=== PATIENT | female | born 1995 | race Caucasian/White ===

== ENCOUNTER 2018-01-02 17:16 | Emergency (ER) | payer OTHER ==
[2018-01-02 17:33] VITALS: BP 159/110
--- NOTE | 2018-01-02 17:53 | UC ---
Laceration HPI - HPI Summary HPI Summary: left 2 and 3 finger cut at work just [employer] - History Of Current Complaint Chief Complaint: UCLaceration Stated Complaint: FINGERS LACERATIONS Time Seen by Provider: 01/02/18 17:42 Hx Obtained From: Patient Laceration Location: Finger - left 2 and 3 finger tip Mechanism Of Injury: Sharp Trauma Onset/Duration: Sudden Onset Pain Intensity: 7 Pain Scale Used: 0-10 Numeric Aggravating Factors: Nothing Related History: Occupational Injury, Dominant Hand Right - Allergies/Home Medications Allergies/Adverse Reactions: Allergies Allergy/AdvReac Type Severity Reaction Status Date / Time aspirin Allergy Vomiting Verified 01/02/18 17:34 naproxen Allergy Vomiting Verified 01/02/18 17:34 Home Medications: Home Medications Verapamil TAB* [Calan TAB*] 80 mg PO BID 01/02/18 [History Confirmed 01/02/18] PMH/Surg Hx/FS Hx/Imm Hx Previously Healthy: No Cardiovascular History: Hypertension - Surgical History Surgical History: Yes Surgery Procedure, Year, and Place: MUSCLE BIOPSY LEFT THIGH - Family History Known Family History: Positive: None - Social History Occupation: Unemployed Lives: With Family Alcohol Use: Weekly Substance Use Type: None Smoking Status (MU): Never Smoked Tobacco Review of Systems Constitutional: Negative Skin: Other - small skin avulsion left 3rd finger 2 small superficial lac left 2nd finger Eyes: Negative ENT: Negative Respiratory: Negative Cardiovascular: Negative Gastrointestinal: Negative Genitourinary: Negative Motor: Negative Neurovascular: Negative Musculoskeletal: Negative Neurological: Negative Psychological: Negative Is Patient Immunocompromised?: No All Other Systems Reviewed And Are Negative: Yes Physical Exam Triage Information Reviewed: Yes Appearance: Well-Appearing, No Pain Distress, Well-Nourished Vital Signs: Initial Vital Signs Temp 99.0 F 01/02/18 17:22 Pulse 130 01/02/18 17:22 Resp 18 01/02/18 17:22 BP 159/110 01/02/18 17:22 Pulse Ox 99 01/02/18 17:22 Vital Signs Reviewed: Yes Eye Exam: Normal Eyes: Positive: Conjunctiva Clear ENT Exam: Normal ENT: Positive: Normal ENT inspection, Hearing grossly normal. Negative: Trismus , Muffled voice, Hoarse voice Dental Exam: Normal Neck exam: Normal Neck: Positive: Supple, Nontender Respiratory Exam: Normal Respiratory: Positive: Chest non-tender, No respiratory distress, No accessory muscle use Cardiovascular Exam: Normal Cardiovascular: Positive: RRR, Pulses Normal, Brisk Capillary Refill Musculoskeletal Exam: Normal Musculoskeletal: Positive: Strength Intact, ROM Intact, No Edema Neurological Exam: Normal Neurological: Positive: Alert, Muscle Tone Normal Psychological Exam: Normal Psychological: Positive: Normal Response To Family, Age Appropriate Behavior Skin: Positive: Other - Skin avulsion left 3rd tip and 2 small lacs tip of 2nd finger Laceration Course/Dx - Course/Dx Course Of Treatment: vaseline gauze dressing wash wound follow with pcp rpn - Differential Dx - Laceration/Wound Provider Diagnoses: skin avulsion and laceration 2/3 finger left hand Discharge - Sign-Out/Discharge Documenting (check all that apply): Patient Departure - Discharge Plan Condition: Stable Disposition: HOME Prescriptions: Cephalexin CAP* [Keflex CAP*] 500 mg PO QID #20 cap Patient Education Materials: Acute Wound Care (ED), Skin Avulsion (ED), Hypertension (ED) Referrals: [facility] [Outside] - 1 Week - Billing Disposition and Condition Condition: STABLE Disposition: Home
== END 2018-01-02 18:16 | disposition home or self-care (01) ==
LOC: UCEAST 17:16
DX: S61.211A Laceration without foreign body of left index finger without damage to nail, initial encounter (principal); S61.213A Laceration without foreign body of left middle finger without damage to nail, initial encounter; W26.9XXA Contact with unspecified sharp object(s), initial encounter; Y93.9 Activity, unspecified; Y92.9 Unspecified place or not applicable; Y99.0 Civilian activity done for income or pay; I10 Essential (primary) hypertension; Z88.6 Allergy status to analgesic agent
CPT/HCPCS: 99212; G0463

== ENCOUNTER 2019-04-07 11:26 | Emergency (ER) | payer BC ==
[2019-04-07 11:48] VITALS: BP 132/86
--- NOTE | 2019-04-07 17:24 | UC ---
Upper Extremity HPI - HPI Summary HPI Summary: 23 year old female with no PMH, no meds presents with laceration to left index finger 20 minutes while cutting film at work with a razor. + washed out, no recent abx use, able to move, + pain, + bleeding. last tetanus 2015. - History of Current Complaint Chief Complaint: UCLaceration Stated Complaint: FINGER LAC Time Seen by Provider: 04/07/19 12:11 Hx Obtained From: Patient Hx Last Menstrual Period: 2 wks ago ?: No Onset/Duration: Sudden Onset Severity Initially: Moderate Severity Currently: Mild Pain Intensity: 1 Pain Scale Used: 0-10 Numeric Character: Sharp Associated Signs And Symptoms: Positive: Negative - Allergies/Home Medications Allergies/Adverse Reactions: Allergies Allergy/AdvReac Type Severity Reaction Status Date / Time aspirin Allergy Vomiting Verified 04/07/19 11:49 naproxen Allergy Vomiting Verified 04/07/19 11:49 PMH/Surg Hx/FS Hx/Imm Hx Previously Healthy: Yes - MSK disease, nae's dx - Surgical History Surgical History: Yes Surgery Procedure, Year, and Place: MUSCLE BIOPSY LEFT THIGH - Family History Known Family History: Positive: None, Non-Contributory - Social History Occupation: Employed Full-time Alcohol Use: Occasionally Substance Use Type: None Smoking Status (MU): Never Smoked Tobacco - Immunization History Most Recent Tetanus Shot: 2014 Review of Systems All Other Systems Reviewed And Are Negative: Yes Constitutional: Positive: Negative Musculoskeletal: Positive: Arthralgia, Myalgia. Negative: Decreased ROM, Edema Neurological: Positive: Negative Is Patient Immunocompromised?: No Physical Exam Triage Information Reviewed: Yes Appearance: Well-Appearing, No Pain Distress, Well-Nourished Vital Signs: Initial Vital Signs Temp 99.0 F 04/07/19 11:46 Pulse 98 04/07/19 11:46 Resp 12 04/07/19 11:46 BP 132/86 04/07/19 11:46 Pulse Ox 100 04/07/19 11:46 Vital Signs Reviewed: Yes Eyes: Positive: Conjunctiva Clear ENT: Positive: Hearing grossly normal Musculoskeletal: Positive: Strength Intact, ROM Intact, No Edema - left hand, fingers throughout Neurological: Positive: Alert, Other: - SITLT l hand throughout Psychological: Positive: Normal Response To Family Skin: Positive: Other - small laceration involving the lateral edge of the L 2nd finger, bleeding controlled with pressure, partial thickness. Area repaired with skin adhesive, no modification. tolerated well, dressed without complication Upper Extremity Course/Dx - Course Course Of Treatment: left 2nd finger laceration, partial thickness - Skin glue- should continue to hold area for 5-7 days. Keep area covered for next 10 days, may need to trim nail as grows out to prevent catching. - Return with swelling, redness, increased pain, decrease movement - OK to wash hands in 24 hours - No soaking/ submerging wound x 1 week. wear gloves when working with chemicals/ dirt. - Change dressing daily or after soiled. - Tetanus up to date - Differential Dx/Diagnosis Differential Diagnosis/HQI/PQRI: Laceration, Strain, Sprain Provider Diagnosis: Laceration of left index finger Discharge ED - Sign-Out/Discharge Documenting (check all that apply): Patient Departure All imaging exams completed and their final reports reviewed: No Studies - Discharge Plan Condition: Good Disposition: HOME Patient Education Materials: Finger Laceration (ED), Skin Adhesive Care (ED) Referrals: [facility] [Outside] No Primary Care Phys,NOPCP [Primary Care Provider] - Additional Instructions: - Skin glue- should continue to hold area for 5-7 days. Keep area covered for next 10 days, may need to trim nail as grows out to prevent catching. - Return with swelling, redness, increased pain, decrease movement - OK to wash hands in 24 hours - No soaking/ submerging wound x 1 week. wear gloves when working with chemicals/ dirt. - Change dressing daily or after soiled. - Tetanus up to date - Billing Disposition and Condition Condition: GOOD Disposition: Home
== END 2019-04-07 12:55 | disposition home or self-care (01) ==
LOC: UCEAST 11:26
DX: S61.211A Laceration without foreign body of left index finger without damage to nail, initial encounter (principal); Z88.6 Allergy status to analgesic agent; W26.8XXA Contact with other sharp object(s), not elsewhere classified, initial encounter; Y92.9 Unspecified place or not applicable
CPT/HCPCS: 12001; 99211; G0463

== ENCOUNTER 2021-02-25 17:57 | Inpatient (IN) ==
[2021-02-25] MEDS ORDERED: Dinoprostone 10 MG VAG.SUPP VAGINAL ONE (19:20)
[2021-02-25] MEDS ORDERED: Buffered Lidocaine 1% SYRIN 1 ml INTRADERM ONE (20:54)
[2021-02-25] MEDS ORDERED: Lactated Ringers 1000 ml BAG 1,000 ML IV ONE (20:54)
[2021-02-25] MEDS ORDERED: Lactated Ringers 1000 ml BAG 1,000 ML IV SCH (21:00)
[2021-02-25 21:30] LABS: Rapid COVID-19 Molecular Undetected (Undetected)
[2021-02-26] MEDS ORDERED: Penicillin G Potassium IV 5,000,000 UNITS in NS 0.9% 100 ml BAG 100 ML IVPB ONE (02:01)
[2021-02-26] MEDS ORDERED: Nalbuphine 10 MG/ML 1 ML VIAL IV PRN (02:02)
[2021-02-26] MEDS ORDERED: Promethazine INJ(RESTRICTED) 25 MG/ML 1 ml VIAL IV PRN (02:02)
[2021-02-26 02:14] LABS: Urine Benzodiazepine Screen None Detected (None Detect); Urine Cannabinoids Screen None Detected (None Detect); Urine Opiates Screen None Detected (None Detect)
[2021-02-26 06:59] LABS: ABS Lymphocytes 1.4 10^3/ul (1.0-4.8); ABS Monocytes 0.6 10^3/ul (0-0.8); ABS Neutrophils 12.7 10^3/ul (1.5-7.7); Hematocrit 35 % (35-47); Hemoglobin 12.2 g/dL (12.0-16.0); Lymphocyte % 9.4 %; Mean Corpuscular HGB Conc 35 g/dL (31-36); Mean Corpuscular Hemoglobin 32 pg (27-31); Mean Corpuscular Volume 94 fL (80-97); Mean Platelet Volume 8.3 fL (7.4-10.4); Platelet Count 229 10^3/uL (150-450); Red Blood Count 3.77 10^6 /uL (3.70-4.87); Red Cell Distribution Width 13 % (10-15); White Blood Count 14.7 10^3/uL (3.5-10.8)
[2021-02-26] MEDS ORDERED: Oxytocin in LR 20 UNITS/1,000 ML BAG IVPB ONE (10:49)
[2021-02-26] MEDS ORDERED: Penicillin G Potassium IV 3,000,000 UNITS in NS 0.9% 100 ml BAG 100 ML IVPB SCH (11:00)
[2021-02-26] MEDS ORDERED: Glycerin ADULT 2.4 gm SUPP PR PRN (11:20)
[2021-02-26] MEDS ORDERED: Witch Hazel PAD JAR TOPICAL PRN (11:20)
[2021-02-26] MEDS ORDERED: Lidocaine 1% VIAL 10 MG/ML VIAL ONE (11:47)
[2021-02-26] MEDS ORDERED: Oxytocin in LR 20 UNITS/1,000 ML BAG IVPB SCH (12:00)
[2021-02-26] MEDS: Dibucaine 1% OINT 28.35 GM TUBE PR PRN (12:37)
[2021-02-26] MEDS ORDERED: Ammonia Inhalant 1 EA AMP ONE (13:22)
[2021-02-27 07:06] LABS: ABS Lymphocytes 2.4 10^3/ul (1.0-4.8); ABS Monocytes 1.3 10^3/ul (0-0.8); ABS Neutrophils 12.5 10^3/ul (1.5-7.7); Eosinophil % 0.2 %; Hematocrit 27 % (35-47); Hemoglobin 9.2 g/dL (12.0-16.0); Lymphocyte % 14.6 %; Mean Corpuscular HGB Conc 34 g/dL (31-36); Mean Corpuscular Hemoglobin 32 pg (27-31); Mean Corpuscular Volume 94 fL (80-97); Mean Platelet Volume 8.5 fL (7.4-10.4); Platelet Count 232 10^3/uL (150-450); Red Blood Count 2.83 10^6 /uL (3.70-4.87); Red Cell Distribution Width 13 % (10-15); White Blood Count 16.3 10^3/uL (3.5-10.8)
[2021-02-28 08:10] VITALS: BP 105/55
[2021-02-28] MEDS: Dibucaine 1% OINT 28.35 GM TUBE PR PRN (10:57)
== END 2021-02-28 12:18 | disposition home or self-care (01) | DRG 560 ==
LOC: MCHOBOUT 17:57 → MCHOB 18:31
PROVIDERS: ADMIT Midwife; ATTEND Midwife

== ENCOUNTER 2023-09-20 11:58 | Inpatient (IN) ==
[2023-09-20] MEDS ORDERED: Lidocaine 1% VIAL 10 MG/ML 30 ML VIAL INJ PRN (14:34)
[2023-09-20] MEDS ORDERED: Buffered Lidocaine 1% SYRIN 1 ml INTRADERM ONE (14:34)
[2023-09-20 16:29] LABS: ABS Basophils 0.1 10^3/uL (0.0-0.1); ABS Lymphocytes 2.4 10^3/uL (1.0-4.8); ABS Monocytes 0.8 10^3/uL (0.0-0.9); ABS Nucleated RBC 0.01 10^3/ul; Eosinophil % 0.4 %; Hematocrit 36.1 % (35-45); Hemoglobin 12.3 g/dL (11.5-14.3); Lymphocyte % 21.1 %; Mean Corpuscular Hemoglobin 31.4 pg (27-33); Mean Corpuscular Volume 92.2 fL (80-97); Mean Platelet Volume 8.9 fL (7.5-11.2); Nucleated Red Blood Cells % 0.1 %/100WBC (0.0-0.8); Platelet Count 272 10^3/uL (150-450); Red Blood Count 3.91 10^6/uL (3.63-4.92); Red Cell Distribution Width 13.1 % (12-17); White Blood Count 11.2 10^3/uL (3.8-11.8)
[2023-09-20 16:34] LABS: Urine Benzodiazepine Screen None Detected (None Detect); Urine Cannabinoids Screen None Detected (None Detect); Urine Opiates Screen None Detected (None Detect)
[2023-09-20] MEDS: Lactated Ringers 1000 ml BAG 1,000 ML IV ONE (16:54)
[2023-09-20] MEDS: Oxytocin in LR 20,000 MILLI.UNIT/1,000 ML BAG IV SCH (17:14)
[2023-09-21] MEDS ORDERED: Glycerin ADULT 2.4 gm SUPP PR PRN (04:24)
[2023-09-21] MEDS: Witch Hazel PAD JAR TOPICAL PRN (04:53)
[2023-09-21] MEDS: Dibucaine 1% OINT 28.35 GM TUBE PR PRN (04:53)
[2023-09-21] MEDS: Oxytocin in LR 20,000 MILLI.UNIT/1,000 ML BAG IV SCH ×2 (04:54→13:14)
[2023-09-21] MEDS ORDERED: Lactated Ringers 1000 ml BAG 1,000 ML IV SCH (05:00)
[2023-09-21] MEDS: Lactated Ringers 1000 ml BAG 1,000 ML IV SCH (13:14)
[2023-09-22 07:00] LABS: ABS Basophils 0.1 10^3/uL (0.0-0.1); ABS Eosinophils 0.1 10^3/uL (0.0-0.5); ABS Lymphocytes 2.7 10^3/uL (1.0-4.8); ABS Monocytes 0.7 10^3/uL (0.0-0.9); ABS Neutrophils 6.7 10^3/uL (1.5-7.6); ABS Nucleated RBC 0.01 10^3/ul; Hematocrit 27.9 % (35-45); Hemoglobin 9.7 g/dL (11.5-14.3); Lymphocyte % 26.2 %; Mean Corpuscular Hgb Conc 34.7 g/dL (31-36); Mean Corpuscular Volume 92.4 fL (80-97); Mean Platelet Volume 8.8 fL (7.5-11.2); Platelet Count 186 10^3/uL (150-450); Red Blood Count 3.02 10^6/uL (3.63-4.92); Red Cell Distribution Width 13.1 % (12-17); White Blood Count 10.3 10^3/uL (3.8-11.8)
[2023-09-22 08:32] VITALS: BP 99/48
== END 2023-09-22 12:30 | disposition home or self-care (01) | DRG 807 ==
LOC: EDSTATUS 12:28 → MCHOB 14:04
PROVIDERS: ADMIT Advanced Practice Midwife; ATTEND Advanced Practice Midwife